=== PATIENT | male | born 1990 | race Caucasian/White ===

== ENCOUNTER 2021-10-09 13:45 | Outpatient (CLI) | payer OTHER | END 2021-10-09 13:48 | disposition home or self-care (01) | LOC: RAD 13:45 | DX: J42 Unspecified chronic bronchitis (principal) ==

== ENCOUNTER 2022-03-02 08:20 | Outpatient (CLI) | payer OTHER | END 2022-03-02 08:26 | disposition home or self-care (01) | LOC: MRI 08:20 | DX: M54.16 Radiculopathy, lumbar region (principal); M54.50 Low back pain, unspecified | CPT/HCPCS: 72148 ==

== ENCOUNTER 2024-04-20 10:44 | Outpatient (CLI) | payer OTHER | END 2024-04-20 10:50 | disposition home or self-care (01) | LOC: SONOGRAMA 10:44 | DX: R10.2 Pelvic and perineal pain (principal); N30.00 Acute cystitis without hematuria ==

== ENCOUNTER 2024-07-06 15:17 | Outpatient (CLI) | payer OTHER ==
[2024-07-06 15:36] LABS: PH,URINE 7.5 (5.0-8.0); URINE APPEARANCE Clear; URINE BILIRRUBIN Negative (NEGATIVE); URINE BLOOD Negative; URINE COLOR Yellow; URINE GLUCOSE Negative (NEGATIVE); URINE KETONE Negative (NEGATIVE); URINE LEUKOCYTE Negative; URINE NITRATE Negative; URINE PROTEIN Negative (NEGATIVE); URINE UROBILINOGEN 0.2 E.U./dl
[2024-07-06 15:46] LABS: URINE BACTERIA 0 uL (0.0-1933); URINE WBC 0.1 uL (0.0-23.2)
== END 2024-07-06 15:21 | disposition home or self-care (01) ==
LOC: LAB 15:17
DX: N30.00 Acute cystitis without hematuria (principal)

== ENCOUNTER 2024-09-28 07:05 | Outpatient (CLI) | payer OTHER ==
[2024-09-28 08:09] LABS: URINE APPEARANCE Clear; URINE BILIRRUBIN Negative (NEGATIVE); URINE BLOOD Negative; URINE COLOR Yellow; URINE GLUCOSE Negative (NEGATIVE); URINE KETONE Negative (NEGATIVE); URINE LEUKOCYTE Negative; URINE NITRATE Negative; URINE PROTEIN Negative (NEGATIVE); URINE UROBILINOGEN 0.2 E.U./dl
[2024-09-28 08:39] LABS: URINE BACTERIA 0 uL (0.0-1933); URINE CAST 0.00 uL (0.0-1.40); URINE EPITHELIAL CELLS 0.0 uL (0.0-38.8); URINE RBC 0.4 uL (0.0-20.8); URINE WBC 0.4 uL (0.0-23.2)
[2024-09-28 09:02] LABS: BASO % 0.8 % (0.1-1.2); EOS # 0.41 (0.04-0.54); EOS % 5.6 % (0.7-7.0); LYMPH # 2.05 (1.18-3.74); LYMPH % 28.2 % (19.3-53.1); MEAN PLATELET VOLUME 10.60 fl (9.4-12.4); MONO # 0.54 (0.24-0.82); MONO % 7.4 % (4.7-12.5); NEUT # 4.19 (1.56-6.13); NEUT % 57.7 % (34.0-71.1); RED CELL DISTRIBUTION WIDTH 11.8 % (11.6-14.4)
[2024-09-28 09:27] LABS: ALT/SGPT 61.0 U/L (12-78); AST/SGOT 22.0 U/L (15-37); BILIRUBIN TOTAL 0.7 mg/dL (0.3-1.2); BUN CREA RATIO 13.0 (7.0-25.0); CREATININE SERUM 1.16 mg/dL (0.70-1.30); GFR 71.24; GLOBULINA 3.6 G/DL (2.4-3.5); GLUCOSE FASTING 84.0 mg/dL (65-100); OSMOLALITY SERUM 281.0 MOSM/KG (275-295)
== END 2024-09-28 07:10 | disposition home or self-care (01) ==
LOC: LAB 07:05
DX: R30.0 Dysuria (principal); N48.1 Balanitis; N53.12 Painful ejaculation; N39.0 Urinary tract infection, site not specified

== ENCOUNTER 2024-09-28 08:23 | Outpatient (CLI) | payer OTHER | END 2024-09-28 08:29 | disposition home or self-care (01) | LOC: TOM 08:23 | PROVIDERS: ATTEND Urology | DX: R30.0 Dysuria (principal); N48.1 Balanitis; N53.12 Painful ejaculation; N39.0 Urinary tract infection, site not specified ==